=== PATIENT | male | born 1965 | race Caucasian/White ===

== ENCOUNTER 2023-11-24 11:45 | Observation (INO) | payer OTHER, SELFPAY ==
[2023-11-18 15:42] LABS: Absolute Lymphocyte Count 1.51 X10^3/uL (0.83-4.51); Absolute Neutrophil Count 7.4 X10^3/uL (2.0-7.7); Basophil# 0.06 X10^3/uL; Basophil% 0.6 % (0-1); Eosinophil# 0.39 X10^3/uL; Eosinophils% 3.8 % (0-5); Hematocrit 43.6 % (40-54); Hemoglobin 14.6 g/dL (13.0-16.5); Lymphocyte # 1.51 X10^3/ul (0.83-4.51); Lymphocyte % 14.6 % (19-41); Mean Corp Hgb Conc 33.5 g/dL (32-36); Mean Corpuscular Hgb 28.9 pg (27.0-32.0); Mean Corpuscular Volume 86.3 fL (80-94); Monocyte# 0.91 X10^3/uL; Monocyte% 8.8 % (0-10); NRBC Flagged by Analyzer 0 % (0-5); Neutrophil # 7.44 X10^3/uL (2.7-7.7); Neutrophil % 71.6 % (47-70); Platelet Count 212 K/mm3 (150-450); RBC Distribution Width CV 13.7 % (11.6-14.6); RBC Distribution Width SD 42.8 fl (35.1-43.9); Red Blood Count 5.05 M/mm3 (4.6-6.2); White Blood Count 10.4 K/mm3 (4.4-11.0)
[2023-11-18 16:29] LABS: Magnesium 2.3 mg/dL (1.6-2.6)
[2023-11-18 17:20] LABS: HIV - WCH Non-Reactive (Nonreactive); Hepatitis B Surface Antibody Non-Reactive; Hepatitis C Antibody Non-Reactive (Nonreactive)
[2023-11-20 06:10] LABS: Hepatitis A AB, Total Negative (Negative)
[2023-11-24] VITALS (17 sets, daily range): BP systolic 104–149; BP diastolic 67–85; PULSE 71–99; RESP 14–18; TEMP 36.3–36.6; O2SAT 94–100; BMI 30.4
[2023-11-24] MEDS: Lactated Ringers 1,000 ML 15 ML IV ×2 (05:45→12:32)
[2023-11-24] MEDS: Magnesium 1 GM over 15 mins IV (06:07)
[2023-11-24] MEDS: dexAMETHasone 10 MG/ML Vial 8 MG IV (06:08)
[2023-11-24] MEDS: Acetaminophen 500 MG Tablet 1000 MG PO ×3 (06:08→21:02)
[2023-11-24 06:19] LABS: Bedside Glucose 124 mg/dL (74-106)
--- NOTE | 2023-11-24 07:25 | PCM.HP.BLA ---
History and Physical MR#: [id number] Acct: [id number] Name: FRITZ LEVY Rep #: [id number] : 1965 Provider: Dr. Brandon Hernandez MD Age/Sex: 58/M Location: [facility] [place] Status: Signed Intake Vital Signs 11/11/2407:04 Height 6 ft Weight: 227 lb 6 oz BMI 30.8 Intake Visit Reasons: cervical spine Is patient in pain?: Yes Pain scale (1-10): 4 Allergies No Known Allergies Allergy (Verified 11/18/23 14:09) Medications allopurinol 100 mg tablet 100 mg PO DAILY 11/11/23 [History Confirmed 11/18/23] lisinopril 20 mg tablet 20 mg PO DAILY 11/11/23 [History Confirmed 11/18/23] loratadine 10 mg tablet (Claritin) 10 mg PO .PRN PRN allergic symptoms 11/11/23 [History Confirmed 11/18/23] multivitamin 1 tab PO DAILY 11/11/23 [History Confirmed 11/18/23] omeprazole 20 mg capsule,delayed release 20 mg PO DAILY 11/11/23 [History Confirmed 11/18/23] sertraline 50 mg tablet 50 mg PO DAILY 11/11/23 [History Confirmed 11/18/23] cholecalciferol (vitamin D3) 25 mcg (1,000 unit) capsule (Vitamin D3) 25 mcg PO DAILY 11/18/23 [History Confirmed 11/18/23] PFSH Medical History Alcohol use Back pain Chewing tobacco dependence Depression Gastric reflux History of hiatal hernia Hypertension Leg cramps Loss of hearing Wears glasses Wears hearing aid Surgical History Hx of colonoscopy Family History Father Hypertension Colon cancer Social History household members: spouse Smoking Status: Current every day smoker tobacco type: smokeless tobacco alcohol intake: current alcohol intake frequency: a few times a week HPI cervical spine Details: This documentation accurately reflects the service provided and the decisions made by me, Dr. Brandon Hernandez MD 11/18/23 1408. Part of today?s visit was documented by Davina Burt ATC, acting as scribe. FRITZ LEVY is a 58 year old M here today for pre-op for C5-6 disc replacement DOS 11/24/2023. Patient states that his cervical spine pain is about the same since the last time he was seen in here. Patient states he takes Tylenol/Advil as needed for pain. Fritz continues to have neck pain radiating down to the left upper extremity. Denies any changes in his symptoms since last week when I saw him. Following was his previous history. 11/11/23: FRITZ LEVY is a 58 year old M here today for Cervical spine. Patient states that he has had cervical neck problems since May 2023. Patient doesn't recall any injury to it. Patient has numbness and tingling going down just his left arm mainly goes to the elbow but today he has some tingling in his thumb. Patient has difficulty sleeping due to his symptoms. Patient feels like the pain starts below the shoulder blade. Patient has done some Physical Therapy. He completed 9 visit, and did that in [place]. He had weakness in his arms but with Physical therapy he got better. Patient states that if he reaches above his head irated it or even having his arm sit on the arm rest bothers it. Patients states it is consent. Patient does have a home traction unit. Patient states Tylenol and Ibuprofen don't do anything. He has been seeing a Chiropractor who referred him here. Patient hasn't tried any injections. Fritz continues to be in left-sided neck pain since May along with left upper extremity radiation going towards the dorsum of the left thumb. He is right-hand dominant. He denies any injuries around May. He had some axial neck pain even before May for which he utilized chiropractic treatment. After the new left-sided radicular symptoms started in May, he went to physical therapy which did improve right-sided axial neck pain but did not improve his left-sided axial neck pain and radicular symptoms. He has tried traction, e-stim, chiropractic adjustments over the last 4 to 5 months without significant help. He is nondiabetic. He has only difficulty with balance but does not seem to be significantly bothered by it. He feels that his left hand is numb and weak. He has some early dexterity issues that he has noticed while playing [employer]. He says that his radicular symptoms have actually worsened over the last 4 to 5 months. 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 He has severe difficulty with pain at night and has to find a comfortable position to improve his left arm radicular pain. Ortho Exam General General: Yes no acute distress Neurologic: Yes alert and Yes oriented x3 Spine SPINE TESTING CERVICAL THORACIC LUMBAR Musculoskeletal Strength 0=absent - 5=normal Details: Examination of the neck shows left paraspinal tenderness. Neurologic evaluation of upper extremity shows 5 x 5 power in all muscle groups, except 4+ strength in left wrist extension, reduced sensation over the dorsal aspect of the left thumb in the C6 dermatome. Silvana's is positive on the left. Romberg's is positive. Tandem gait shows imbalance. Bilateral knee reflexes are brisk. Left ankle jerk shows ill-sustained clonus. Coding Level of Care Code Off vis,est,level 3 Diagnoses HNP (herniated nucleus pulposus) with myelopathy, cervical M50.00 Time Spent (min) 30 Assessment and Plan Assessment and Plan (1) HNP (herniated nucleus pulposus) with myelopathy, cervical: Status: Acute Plan I again reviewed x-rays and MRI of the cervical spine. These show C5-6 reduced disc height without any dynamic instability on flexion-extension views. Patient is obtained MRI on October 29 which was uploaded to our system. This shows C5-6 left paracentral large disc herniation causing left hemicord compression as well as left foraminal stenosis. I explained to him that clinically he has developed cervical myelopathy with hyperreflexia in lower extremities, balance difficulties, positive Silvana's on the left, dexterity issues. He also has significant radiculopathy of at least 5 months duration which did not improve with multiple nonsurgical modalities such as physical therapy and chiropractic treatment. I explained to him the natural history of both cervical myelopathy as well as that of radiculopathy. Cervical myelopathy typically has a progressive pattern. His symptoms correlate with the left C5-6 disc herniation with hemicord compression. I recommend surgery for decompression. Surgical options were discussed in detail which include C5-6 ACDF versus C5-6 disc replacement. I recommended C5 status replacement as he has a single level disease without any instability or facet arthrosis. All risk benefits and alternatives were discussed with the patient. The risks include but are not limited to infection, bleeding, injury to nerves and vessels, hematoma formation, need for further surgery, hardware failure, subsidence, heterotopic ossification, dysphagia, dysphonia, adjacent segment degeneration, reoperation, repair of prosthesis, DVT, pulm embolism, pneumonia, atelectasis, cardiopulmonary event. Patient understands and agrees to proceed with surgery. Consent was signed.
[2023-11-24] MEDS: Cefazolin 2 GM in 0.9% Normal Saline (100mL Bag) 100 ML IV (09:15)
--- NOTE | 2023-11-24 09:24 | RAD_ITS ---
PROCEDURE: Intraoperative fluoroscopic services. DATE OF EXAMINATION: November 24, 2023. INDICATION: Male, 58 years old. C5-C6 cervical disc arthroplasty. FLUOROSCOPY TIME (if supplied): (42.2 seconds) minutes/seconds. 9.938 mCGy RAD/Cerv Spine 2 or 3 Views IMPRESSION: Intraoperative imaging provided for anterior C5-C6 disc arthroplasty. Electronically Signed: Kvng Casper MD at 14:26 EDT ,
--- NOTE | 2023-11-24 11:34 | PCM.OPRPT ---
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 Anesthesia: Gen. endotracheal Estimated blood loss: 20 mL Complications: None Instrumentation used: [employer] Mobi-C cervical disc replacement implants Indications: The patient is a pleasant 58-year-old gentleman who presented with symptoms of neck pain, left upper extremity radiation, progressive numbness and weakness and balance issues. MRI revealed C5-6 paracentral disc herniation with left hemicord and foraminal compression. In order to halt the progression of myelopathy, patient requested surgical intervention. All risks and benefits of the procedure were explained to the patient. The risks include but are not limited to infection, bleeding, injury to nerves and vessels, vertebral artery injury, spinal cord injury, paralysis, vocal cord paralysis, injury to esophagus, need for further procedures, adjacent segment degeneration, heterotopic ossification, implant loosening, implant failure, DVT, pulmonary embolism, cardiopulmonary event, etc. Procedure: The patient was identified in the preoperative suite using unique patient identifiers. Skin was marked consent was taken and all questions were answered. The patient was then brought back to the operative room and a timeout was performed. General endotracheal anesthesia was given. Intraoperative neuro monitoring leads were applied. The patient was carefully positioned supine on a regular OR table. A lateral x-ray with a C-arm was done to identify the level and to define the incision. The anterior neck was then prepped and draped in the usual fashion. A final timeout was then performed. A transverse skin incision was then taken to the left of midline 2 fingerbreadths above the clavicle. Subcutaneous tissue was then divided with Bovie. Platysma was identified and cut transversely with scissors. The fascial interval between the sternocleidomastoid and the larynx was developed. Omohyoid was identified and mobilized. Carotid sheath was laterally while the esophagus with the larynx was retracted medially to reach the prevertebral fascia. All prevertebral layers of fascia were bluntly dissected and a Houston pin was placed into one of the bodies. A lateral C-arm image was used to confirm the correct level. Once this was done longus coli muscle was elevated on both sides at and above and below C5-6 disc. Shadow line retractors were then placed with great care to protect the esophagus. A long handle knife was then used to perform annulotomy at C5-6. Disc fragments were removed with the pituitary. Houston pins were placed in C5 and C6 for disc distraction. AP view confirmed midline placement of Houston pins. Curettes were utilized to remove cartilage from the endplates. Discectomy was performed laterally up to the uncovertebral joints. Adequate decompression was performed, PLL was thinned out and resected. Extruded disc fragments were removed piecemeal from the spinal canal. Nerve hook was utilized to remove all extruded disc fragments. The extruded disc fragments correlated with the size of the disc herniation seen on MRI. Foramina were decompressed without taking down the uncovertebral processes. Once the disc space was prepared, trials of various sizes were utilized. Thorough irrigation was given. Mobi-C anterior cervical disc replacement implant of size 17 x 17 mm with 5 mm height was then placed under fluoroscopic guidance. Adequate positioning was noticed on AP and lateral views. Thorough irrigation was again given. Hemostasis was achieved with FloSeal and cautery. Closure was done with 3-0 Vicryl for the platysma and subcutaneous tissue layers and 4-0 Monocryl for the skin. Closure was done around Sharon drain. Steri-Strips were applied and dressing was done with 4 x 4 gauze and Tegaderm. A cervical collar was then applied. The patient was then woken up from anesthesia extubated and taken to PACU in stable condition. Intraoperative neuro monitoring was performed throughout this procedure. Motor evoked potentials were run periodically. Sensory's and motor potentials of the left upper and lower extremities were temporarily reduced and this was attributed to intraoperative hypotension. On correction of the hypertension, all potentials returned to baseline and remained there until the end of the procedure. I was present for the entire surgery and performed the surgery myself. Admit VTE Documentation VTE Mechan Device Prophylaxis: SCD's Procedures Musculoskeletal [id number]: Other Procedure See Report
[2023-11-24] MEDS: dexAMETHasone 4 MG/ML Vial IV ×2 (12:34→18:07)
--- NOTE | 2023-11-24 13:57 | NURSING ---
neuro check negative
[2023-11-24] MEDS: Lactated Ringers 1,000 ML 100 ML IV ×2 (16:42→18:07)
[2023-11-24] MEDS: Cefazolin 1 GM/50 ML BAG IV (17:16)
--- NOTE | 2023-11-24 21:01 | NURSING ---
dr schwab notified of consult
--- OUTSIDE RECORDS SUMMARY | 2023-11-24 21:29 | XMS RPT_ITS | CCD ---
Author Name Unknown Address [address] [facility] [address] [place] [address] Organization [facility] Care Team Providers Care Primer Charger Name Role Phone Tunde Avalos Admitting Unavailable Avalos, Tunde Attending Unavailable Avalos, Christophremedios Primary Care Unavailable Moomaw, Emmett Admitting Unavailable Moomaw, Emmett Attending Unavailable Avalos, Christophremedios Primary Care Unavailable Avalos, Tunde Attending Unavailable Avalos, Christophremedios Primary Care Unavailable Avalos, Tunde Attending Unavailable Avalos, Christophremedios Primary Care Unavailable Avalos, Christamberer Admitting Unavailable Avalos, Christabril Attending Unavailable Avalos, Christopher Primary Care Unavailable Avalos, Christopher Admitting Unavailable Avalos, Christopher Attending Unavailable Avalos, Christopher Primary Care Unavailable Avalos, Christopher Attending Unavailable Avalos, Christopher Primary Care Unavailable Avalos Tunde ROBERTS Primary Care Provider TUNDE AVALOS Primary Care Unavaila RICARDO Baltazar Attending Un available Tunde Avalos Unavailable [phone] Unavailable Unavailable RAMIRO VALENTINE Referring Unavailable CHRISTIANO VILLANUEVA Attending Unavailable PROVIDER, UNKNOWN Admitting Unavailable Tunde Avalos Unavailable Dave Carrasco Unavailable Unavailable Hong Chau Unavailable TUNDE AVALOS Attending Unavaila ble AVALOS, TUNDE CALLOWAY Referring Unavaila ble AVALOS, TUNDE CALLOWAY Primary Care Unavaila ble AVALOS, TUNDE CALLOWAY Attending Unavaila ble AVALOS, TUNDE CALLOWAY Referring Unavaila ble AVALOS, TUNDE CALLOWAY Primary Care Unavaila ble AVALOS, TUNDE CALLOWAY Attending Unavaila ble AVALOS, TUNDE CALLOWAY Referring Unavaila ble AVALOS, TUNDE CALLOWAY Primary Care Unavaila ble Avalos, Dr. Tunde Calloway Primary Care Unav ailable Kamenik, Ms. Dave Cohen Attending Unavai lable Avalos, Dr. Tunde Calloway Primary Care Unav ailable Avalos, Dr. Tunde Calloway Attending Unav ailable Roscoe, Dr. Hong Vaca Attending Unavail able Avalos, Dr. Tunde Calloway Primary Care Unav ailable Avalos, Dr. Tunde Calloway Primary Care Unav ailable Avalos, Dr. Tunde Calloway Referring Unav ailable Sacha Stern Admitting Unavailable ThomSacha galvez Attending Unavailable Avalos Tunde ROBERTS Primary Care Provider [phone] Tunde Avalos MD Unavailable Tunde Avalos MD Unavailable [phone] Tunde Avalos MD Primary Care Provider [phone] JOIE TAVARES Attending Unavailable AVALOS, CHRISTOPHER D Referring Unavailable AVALOS, CHRISTOPHER D Primary Care Unavailable AVALOS, CHRISTOPHER D Referring Unavailable AVALOS, CHRISTOPHER D Primary Care Unavailable AVALOS, CHRISTOPHER D Referring Unavailable AVALOS, CHRISTOPHER D Primary Care Unavailable AVALOS, CHRISTOPHER D Referring Unavailable AVALOS, CHRISTOPHER D Primary Care Unavailable AVALOS, CHRISTOPHER D Referring Unavailable AVALOS, CHRISTOPHER D Primary Care Unavailable AVALOS, CHRISTOPHER D Referring Unavailable AVALOS, CHRISTOPHER D Primary Care Unavailable AVALOS, CHRISTOPHER D Referring Unavailable AVALOS, CHRISTOPHER D Primary Care Unavailable AVALOS, CHRISTOPHER D Referring Unavailable AVALOS, CHRISTOPHER D Primary Care Unavailable AVALOS, CHRISTOPHER D Referring Unavailable AVALOS, CHRISTOPHER D Primary Care Unavailable JOIE TAVARES Attending Unavailable AVALOS, CHRISTOPHER D Referring Unavailable AVALOS, CHRISTOPHER D Primary Care Unavailable AVALOS, CHRISTOPHER D Primary Care Unavailable DAVE CARRASCO Attending Unavailable PAMELA ESPINOZA Referring Unavailable AVALOS, CHRISTOPHER Amber Primary Care Unavailable AVALOS, CHRISTOPHER D Referring Unavailable AVALOS, CHRISTOPHER D Primary Care Unavailable AVALOS, CHERIEOPHER D Attending Unavailable AVALOS, CHRISTOPHER D Primary Care Unavailable AVALOS, CHERIEOPHER D Attending Unavailable AVALOS, CHERIEOPHER D Primary Care Unavailable AVALOS, CHERIEOPHER D Attending Unavailable AVALOS, CHERIEOPHER D Referring Unavailable AVALOS, CHRISTOPHER D Primary Care Unavailable AVALOS, CHRISTOPHER D Attending Unavailable AVALOS, CHRISTOPHER D Primary Care Unavailable AVALOS, CHRISTOPHER D Attending Unavailable AVALOS, CHRISTOPHER D Primary Care Unavailable AVALOS, CHRISTOPHER D Primary Care Unavailable AVALOS, CHRISTOPHER D Primary Care Unavailable Allergies Allergy Classification Reported Allergen(s) Allergy Type Date of Onset Reaction(s) Facility (1 source) Erythromycin; Translations: [erythromycin] Drug Allergy [facility] Repository Medications Current Medications Medication Drug Class(es) Dates Sig (Normalized) Sig (Original) allopurinol 100 mg oral tablet (19 sources) Xanthine Oxidase Inhibitor Start: 11-12-2021 End: 11-12-2024 take 1 tablet by mouth once daily allopurinol (Zyloprim) 100 mg tablet Indications: Gout, unspecified cause, unspecified chronicity, unspecified site Take 1 tablet (100 mg) by mouth once daily. 90 tablet 3 11/13/2023 11/12/2024 Active amoxicillin 875 mg / clavulanate 125 mg oral tablet (2 sources) Penicillin-class Antibacterial Start: 06-26-2022 End: 07-05-2022 take 1 tablet by mouth twice daily at mealtime amoxicillin-clavu lanate 875 mg-125 mg oral tablet ; 875 milligram(s) orally 2 times a day Quantity: 20 Refills: 0 Ordered: 26-Jun-2022 Dave Carrasco Start: 26-Jun-2022 End: 05-Jul-2022 Generic Substitution Allowed Comments: Finish all this medication unless otherwise directed by prescriber.Take with food or milk. Completed/Discontinued Medications Medication Drug Class(es) Dates Sig (Normalized) Sig (Original) ALPRAZolam 0.25 mg oral tablet (3 sources) Benzodiazepine Start: 08-16-2022 take 1 tablet by mouth three times daily as needed ALPRAZolam 0.25 MG Oral Tablet TAKE 1 TABLET 3 TIMES DAILY NEEDED. Quantity: 21 Refills: 0 Ordered: 16-Aug-2022 Tunde Avalos MD : 16-Aug-2022 Active hydroCHLOROthiazide 12.5 mg / lisinopril 10 mg oral tablet (2 sources) Thiazide Diuretic, Angiotensin Converting Enzyme Inhibitor Start: 12-24-2018 take 1 tablet by mouth once daily Lisinopril-hydr oCHLOROthiazide 10-12.5 MG Oral Tablet TAKE 1 TABLET DAILY. Quantity: 90 Refills: 3 Ordered: 05-Jan-2021 Tunde Avalos MD Start : 24-Dec-2018 Active Problems Active Problems Problem Classification Problem Date Documented Date Episodic/Chronic Allergic reactions (3 sources) Urticaria; Translations: [Urticaria, unspecified] Onset: 10-22-2023 10-22-2023 Episodic Disorders of lipid metabolism (20 sources) Hypertriglyceridemia; Translations: [Pure hyperglyceridemia] Onset: 11-25-2022 02-17-2023 Chronic Esophageal disorders (20 sources) Gastroesophageal reflux disease; Translations: [Esophageal reflux] Onset: 06-29-2022 02-17-2023 Chronic Essential hypertension (20 sources) Hypertensive disorder; Translations: [Unspecified essential hypertension] Onset: 06-29-2022 02-17-2023 Chronic Gout and other crystal arthropathies (20 sources) Gouty arthritis of toe; Translations: [Gout, unspecified] Onset: 11-25-2022 Chronic Headache; including migraine (2 sources) Headache; including migraine; Translations: [Headache, unspecified] Onset: 06-26-2022 Immunizations and screening for infectious disease (20 sources) Patient encounter status; Translations: [Other specified vaccination] Onset: 11-16-2018 02-17-2023 Episodic Mood disorders (20 sources) Depressive disorder; Translations: [Depressive disorder, not elsewhere classified] Onset: 11-25-2022 02-17-2023 Chronic Other and unspecified benign neoplasm (2 sources) Personal history of colonic polyps; Translations: [Personal history of colonic polyps] Onset: 10-08-2022 Episodic Other bone disease and musculoskeletal deformities (3 sources) Segmental and somatic dysfunction; Translations: [Segmental and somatic dysfunction of cervical region] Onset: 10-29-2023 10-29-2023 Episodic Other bone disease and musculoskeletal deformities (1 source) Segmental and somatic dysfunction of cervical region; Translations: [Segmental and somatic dysfunction of cervical region] Onset: 10-29-2023 Episodic Other hereditary and degenerative nervous system conditions (15 sources) Essential tremor; Translations: [Essential and other specified forms of tremor] Onset: 11-25-2022 11-25-2022 Chronic Other hereditary and degenerative nervous system conditions (1 source) Essential tremor; Translations: [Essential tremor] Onset: 11-25-2022 Chronic Other inflammatory condition of skin (20 sources) Rosacea; Translations: [Rosacea] Onset: 11-25-2022 11-25-2022 Chronic Other inflammatory condition of skin (2 sources) Rosacea, unspecified; Translations: [Rosacea, unspecified] Onset: 11-25-2022 Chronic Other male genital disorders (20 sources) Secondary erectile dysfunction; Translations: [Impotence of organic origin] Onset: 11-25-2022 02-17-2023 Chronic Other male genital disorders (1 source) Other male erectile dysfunction; Translations: [Impotence of organic origin] Onset: 11-25-2022 11-13-2023 Chronic Other male genital disorders (2 sources) Male erectile dysfunction, unspecified; Translations: [Male erectile dysfunction, unspecified] Onset: 11-25-2022 Chronic Other nervous system disorders (4 sources) Other chronic pain; Translations: [Other chronic pain] Onset: 08-01-2023 Chronic Other non-traumatic joint disorders (1 source) Shoulder pain; Translations: [Pain in right shoulder] 02-17-2023 Episodic Other non-traumatic joint disorders (4 sources) Bilateral chronic pain of upper limbs; Translations: [Pain in right shoulder] 08-01-2023 Episodic Other nutritional; endocrine; and metabolic disorders (20 sources) Obesity; Translations: [Obesity, unspecified] Onset: 11-25-2022 11-25-2022 Chronic Residual codes; unclassified (2 sources) Family history of malignant neoplasm of digestive organs; Translations: [Family history of malignant neoplasm of digestive organs] Onset: 10-08-2022 Episodic Residual codes; unclassified (2 sources) Family history of colonic polyps; Translations: [Family history of colonic polyps] Onset: 10-08-2022 Episodic Spondylosis; intervertebral disc disorders; other back problems (4 sources) Cervical spondylosis without myelopathy; Translations: [Spondylosis without myelopathy or radiculopathy, cervical region] Onset: 10-29-2023 10-29-2023 Chronic Unclassified (2 sources) CONGESTION SINUS PAIN 06-26-2022 Past or Other Problems Problem Classification Problem Date Documented Da te Episodic/Chronic Fever of unknown origin (1 source) Fever, unspecified; Translations: [Fever, unspecified] Onset: 06-29-2022 Episodic Malaise and fatigue (1 source) Other fatigue; Translations: [Other fatigue] Onset: 06-29-2022 Episodic Other aftercare (1 source) Other termite inspector (current) drug therapy; Translations: [Other alf (current) drug therapy] Onset: 06-29-2022 Episodic Other connective tissue disease (20 sources) Plantar fasciitis; Translations: [Plantar fascial fibromatosis] Onset: 11-25-2022 Resolved: 02-17-2023 02-17-2023 Episodic Other non-traumatic joint disorders (8 sources) Pain in right shoulder; Translations: [Pain in joint, shoulder region] Onset: 08-01-2023 08-20-2023 Episodic Other non-traumatic joint disorders (8 sources) Pain in left shoulder; Translations: [Pain in joint, shoulder region] Onset: 08-01-2023 09-25-2023 Episodic Other screening for suspected conditions (not mental disorders or infectious disease) (6 sources) Encounter for screening for malignant neoplasm of colon; Translations: [Encounter for screening for malignant neoplasm of prostate] Onset: 10-08-2022 Episodic Other upper respiratory infections (1 source) Acute sinusitis, unspecified; Translations: [Acute sinusitis, unspecified] Onset: 06-26-2022 Episodic Pneumonia (except that caused by tuberculosis or sexually transmitted disease) (20 sources) Pneumonia; Translations: [Pneumonia, organism unspecified] Onset: 08-20-2022 Resolved: 02-17-2023 06-29-2022 Episodic Residual codes; unclassified (2 sources) Pain, unspecified; Translations: [Pain, unspecified] Onset: 06-29-2022 Episodic Spondylosis; intervertebral disc disorders; other back problems (9 sources) Neck pain; Translations: [Cervicalgia] Onset: 08-01-2023 08-01-2023 Episodic Unclassified (4 sources) Onset: 08-20-2023 08-20-2023 Results Test Name Value Interpretation Reference Range Facil ity Vital Signs Date Time Vital Sign Value Performing Clinician Faci erni 11-13-2023 10:22-0500 Body height 182.9 cm Tunde Avalos MD Work Phone: [facility] 11-13-2023 10:22-0500 Body mass index (BMI) [Ratio] 30.75 kg/m2 Tunde Avalos MD Work Phone: [facility] 11-13-2023 10:22-0500 Body weight 102.83 kg Tunde Avalos MD Work Phone: [facility] 11-13-2023 10:22-0500 Diastolic blood pressure 80 mm[Hg] Tunde Avalos MD Work Phone: [facility] 11-13-2023 10:22-0500 Heart rate 94 /min Tunde Avalos MD Work Phone: [facility] 11-13-2023 10:22-0500 SaO2% (BldA) [Mass fraction] 97 % Tunde Avalos MD Work Phone: [facility] 11-13-2023 10:22-0500 Systolic blood pressure 128 mm[Hg] Tunde Avalos MD Work Phone: [facility] 10-22-2023 09:36-0500 Body height 182.9 cm Dave Carrasco REHABILITATION CONSTRUCTION SPECIALIST-SEISMIC PROSPECTING OBSERVER Work Phone: [facility] 10-22-2023 09:36-0500 Body mass index (BMI) [Ratio] 31.19 kg/m2 Dave Carrasco REHABILITATION CONSTRUCTION SPECIALIST-SEISMIC PROSPECTING OBSERVER Work Phone: [facility] 10-22-2023 09:36-0500 Body temperature 97.39 [degF] Dave Carrasco REHABILITATION CONSTRUCTION SPECIALIST-SEISMIC PROSPECTING OBSERVER Work Phone: [facility] 10-22-2023 09:36-0500 Body weight 104.33 kg Dave Carrasco REHABILITATION CONSTRUCTION SPECIALIST-SEISMIC PROSPECTING OBSERVER Work Phone: [facility] 10-22-2023 09:36-0500 Diastolic blood pressure 79 mm[Hg] Dave Carrasco REHABILITATION CONSTRUCTION SPECIALIST-SEISMIC PROSPECTING OBSERVER Work Phone: [facility] 10-22-2023 09:36-0500 Heart rate 120 /min Dave Carrasco REHABILITATION CONSTRUCTION SPECIALIST-SEISMIC PROSPECTING OBSERVER Work Phone: [facility] 10-22-2023 09:36-0500 Respiratory rate 14 /min aDve Carrasco REHABILITATION CONSTRUCTION SPECIALIST-SEISMIC PROSPECTING OBSERVER Work Phone: [facility] 10-22-2023 09:36-0500 SaO2% (BldA) [Mass fraction] 97 % Dave Carrasco REHABILITATION CONSTRUCTION SPECIALIST-SEISMIC PROSPECTING OBSERVER Work Phone: [facility] 10-22-2023 09:36-0500 Systolic blood pressure 129 mm[Hg] Dave Carrasco REHABILITATION CONSTRUCTION SPECIALIST-SEISMIC PROSPECTING OBSERVER Work Phone: [facility] 08-01-2023 15:15-0500 Body height 182.9 cm Tunde Avalos MD Work Phone: [facility] 08-01-2023 15:15-0500 Body mass index (BMI) [Ratio] 32.33 kg/m2 Tunde Avalos MD Work Phone: [facility] 08-01-2023 15:15-0500 Body weight 108.14 kg Tunde Avalos MD Work Phone: [facility] 08-01-2023 15:15-0500 Diastolic blood pressure 90 mm[Hg] Tunde Avalos MD Work Phone: [facility] 08-01-2023 15:15-0500 Heart rate 88 /min Tunde Avalos MD Work Phone: [facility] 08-01-2023 15:15-0500 SaO2% (BldA) [Mass fraction] 98 % Tunde Avalos MD Work Phone: [facility] 08-01-2023 15:15-0500 Systolic blood pressure 120 mm[Hg] Tunde Avalos MD Work Phone: [facility] 02-17-2023 08:06-0400 Body height 182.9 cm Tunde Avalos MD Work Phone: [facility] 02-17-2023 08:06-0400 Body mass index (BMI) [Ratio] 31.33 kg/m2 Tunde Avalos MD Work Phone: [facility] 02-17-2023 08:06-0400 Body weight 104.78 kg Tunde Avalos MD Work Phone: [facility] 02-17-2023 08:06-0400 Diastolic blood pressure 90 mm[Hg] Tunde Avalos MD Work Phone: [facility] 02-17-2023 08:06-0400 Heart rate 81 /min Tunde Avalos MD Work Phone: [facility] 02-17-2023 08:06-0400 SaO2% (BldA) [Mass fraction] 98 % Tunde Avalos MD Work Phone: [facility] 02-17-2023 08:06-0400 Systolic blood pressure 110 mm[Hg] Tunde Avalos MD Work Phone: [facility] 08-16-2022 14:07-0500 Body height 182.88 cm Tunde Avalos Work Phone: [facility] Work Phone: 08-16-2022 14:07-0500 Body mass index (BMI) [Ratio] 30.68 kg/m2 Tunde Avalos Work Phone: -[facility] Work Phone: 08-16-2022 14:07-0500 Body surface area Derived from formula 2.24 m2 Tunde Avalos Work Phone: [facility] Work Phone: 08-16-2022 14:07-0500 Body weight 102.6 kg Tunde Gaged Work Phone: [facility] Work Phone: 08-16-2022 14:07-0500 Diastolic blood pressure 80 mm[Hg] Christamberer D Avalos Work Phone: [facility] Work Phone: 08-16-2022 14:07-0500 Heart rate 78 /min Christopher D Avalos Work Phone: [facility] Work Phone: 08-16-2022 14:07-0500 SaO2% (BldA) [Mass fraction] 98 % Chevyer Amber Gaged Work Phone: [facility] Work Phone: 08-16-2022 14:07-0500 Systolic blood pressure 120 mm[Hg] Christamberer D Avalos Work Phone: [facility] Work Phone: 06-29-2022 14:00-0400 Diastolic blood pressure 101 mm[Hg] Christopher Avalos Other Phone: [facility] 06-29-2022 14:00-0400 Heart rate 86 /min Christopher Avalos Other Phone: [facility] 06-29-2022 14:00-0400 Respiratory rate 16 /min Christopher Avalos Other Phone: [facility] 06-29-2022 14:00-0400 SaO2% (BldA) [Mass fraction] 98 % Christopher Avalos Other Phone: [facility] 06-29-2022 14:00-0400 Systolic blood pressure 121 mm[Hg] Christopher Avalos Other Phone: [facility] 06-26-2022 18:48-0400 Body height 183 cm Christopher Avalos Other Phone: [facility] 06-26-2022 18:48-0400 Body temperature 97.7 [degF] Tunde Gaged Other Phone: [facility] 06-26-2022 18:48-0400 Diastolic blood pressure 88 mm[Hg] Tunde Gaged Other Phone: [facility] 06-26-2022 18:48-0400 Heart rate 111 /min Tunde Avalos Other Phone: [facility] 06-26-2022 18:48-0400 Respiratory rate 14 /min Tunde Avalos Other Phone: [facility] 06-26-2022 18:48-0400 SaO2% (BldA) [Mass fraction] 97 % Tunde Avalos Other Phone: [facility] 06-26-2022 18:48-0400 Systolic blood pressure 144 mm[Hg] Tunde Avalos Other Phone: [facility] 05-14-2021 08:04-0400 Body height 182.88 cm Tunde Avalos Work Phone: -[facility] Work Phone: 05-14-2021 08:04-0400 Body mass index (BMI) [Ratio] 30.41 kg/m2 Tunde Avalos Work Phone: -[facility] Work Phone: 05-14-2021 08:04-0400 Body surface area Derived from formula 2.24 m2 Tunde Avalos Work Phone: -[facility] Work Phone: 05-14-2021 08:04-0400 Body temperature 97.3 [degF] Tunde Avalos Work Phone: -[facility] Work Phone: 05-14-2021 08:04-0400 Body weight 101.72 kg Tunde Avalos Work Phone: [facility] Work Phone: 05-14-2021 08:04-0400 Diastolic blood pressure 84 mm[Hg] Tunde Avalos Work Phone: [facility] Work Phone: 05-14-2021 08:04-0400 Heart rate 87 /min Tunde Avalos Work Phone: [facility] Work Phone: 05-14-2021 08:04-0400 SaO2% (BldA) [Mass fraction] 98 % Tunde Avalos Work Phone: [facility] Work Phone: 05-14-2021 08:04-0400 Systolic blood pressure 116 mm[Hg] Tunde Avalos Work Phone: [facility] Work Phone: 01-28-2021 08:59-0400 Body height 182.9 cm Ricardo Monterroso MD Work Phone: [facility] 01-28-2021 08:59-0400 Body mass index (BMI) [Ratio] 28.48 kg/m2 Ricardo Monterroso MD Work Phone: [facility] 01-28-2021 08:59-0400 Body temperature 96.3 [degF] Ricardo Monterroso MD Work Phone: [facility] 01-28-2021 08:59-0400 Body weight 95.25 kg Ricardo Monterroso MD Work Phone: [facility] 01-28-2021 08:59-0400 Diastolic blood pressure 89 mm[Hg] Ricardo Monterroso MD Work Phone: [facility] 01-28-2021 08:59-0400 Heart rate 75 /min Ricardo Monterroso MD Work Phone: [facility] 01-28-2021 08:59-0400 Respiratory rate 18 /min Ricardo Monterroso MD Work Phone: [facility] 01-28-2021 08:59-0400 SaO2% (BldA) [Mass fraction] 100 % Ricardo Monterroso MD Work Phone: [facility] 01-28-2021 08:59-0400 Systolic blood pressure 142 mm[Hg] Ricardo Monterroso MD Work Phone: [facility] Encounters Encounter Date Encounter Type Care Provider Facility Start: 11-13-2023 End: 11-14-2023 ambulatory IVANHOE Amber [facility] Amb[facility] Start: 11-13-2023 End: 11-14-2023 Encounter for other preprocedural examination [facility] Ambulatory Start: 11-13-2023 End: 11-13-2023 Office outpatient visit 15 minutes Tunde Avalos MD Work Phone: [facility] Procedures Date Procedure Procedure Detail Performing Clinician Start: 11-13-2023 CBC W Auto Different ial panel - Blood TUNDE AVALOS Start: 11-13-2023 Comprehensive metabo lic 2000 panel - Serum or Plasma TUNDE AAVLOS Start: 11-13-2023 ECG 12-LEAD OSMANI AVALOS Start: 11-13-2023 Ecg routine ecg w/le ast 12 lds w/i&r Tunde Avalos MD Work Phone: Start: 10-29-2023 MR CERVICAL SPINE WO IV CONTRAST JOIE TAVARES Start: 10-29-2023 Mri spinal canal cer vical w/o contrast matrl Pamela Espinoza DC Work Phone: Start: 09-25-2023 FOLLOW UP IN PHYSICA L THERAPY JOIE TAVARES Start: 09-23-2023 FOLLOW UP IN PHYSICA L THERAPY JOIE TAVARES Start: 09-18-2023 FOLLOW UP IN PHYSICA L THERAPY JOIE TAVARES Start: 09-16-2023 FOLLOW UP IN PHYSICA L THERAPY JOIE TAVARES Start: 09-11-2023 FOLLOW UP IN PHYSICA L THERAPY JOIE TAVARES Start: 09-09-2023 FOLLOW UP IN PHYSICA L THERAPY JOIE TAVARES Start: 09-04-2023 FOLLOW UP IN PHYSICA L THERAPY JOIE TAVARES Start: 09-02-2023 FOLLOW UP IN PHYSICA L THERAPY JOIE TAVARES Start: 08-29-2023 FOLLOW UP IN PHYSICA L THERAPY JOIE TAVARES Start: 08-20-2023 AMB REFERRAL TO PHYS ICAL THERAPY JOIE TAVARES Start: 08-19-2023 FOLLOW UP IN FAMILY MEDICINE TUNDE AVALOS Start: 08-08-2023 CHOLESTEROL, LDL DIRECT TUNDE AVALOS Start: 08-08-2023 Comprehensive metabo lic 2000 panel - Serum or Plasma TUNDE AVALOS Start: 08-08-2023 PROSTATE SPECIFIC AN TIGEN, SCREEN TUNDE AVALOS Start: 08-08-2023 Lipid 1996 panel - S barbara or Plasma Dave ARAYA Work Phone: Start: 08-01-2023 XR SHOULDER RIGHT 2+ VIEWS JOIE TAVARES Start: 08-01-2023 XR CERVICAL SPINE CO MPLETE 4-5 VIEWS JOIE TAVARES Start: 08-01-2023 XR SHOULDER LEFT 2+ VIEWS JOIE TAVARES Start: 08-01-2023 End: 08-01-2023 Radex spine cervical 4 or 5 views Tunde Avalos MD Work Phone: Start: 01-31-2023 Lipid 1996 panel - S barbara or Plasma Tunde Avalos MD Work Phone: Start: 10-08-2022 End: 10-08-2022 Colonoscopy Tunde Avalos Work Phone: Start: 10-08-2022 Colonoscopy Osmani Avalos Work Phone: Plan of Treatment Date Care Activity Detail Author Start: 10-08-2032 Screening for malignant neoplasm of colon [facility] Start: 10-05-2030 DTaP/Tdap/Td Vaccines (2 - Td or Tdap) DTaP/Tdap/Td Vaccines (2 - Td or Tdap) [facility] Start: 08-08-2028 Lipid panel Lipid Panel [facility] Start: 02-01-2028 Lipid panel Lipid Panel [facility] Start: 11-25-2027 Screening for malignant neoplasm of colon [facility] Start: 02-16-2024 End: 02-16-2024 Patient encounter procedure 02/16/2024 2:00 PM EDT Office Visit [facility] [address] [place] [id number] Tunde Avalos MD [address] [place] [address] [facility] Start: 11-13-2023 End: 11-12-2024 CBC W Auto Differential panel - Blood [facility] Service Area Work Phone: Immunizations Immunization Date Immunization Notes Care Provider Fa cility 12-29-2020 Moderna COVID-19 Vaccine 100 MCG/0.5ML Intramuscular Suspension Tunde Avalos Work Phone: [facility] Payers Date Payer Category Payer Unknown [employer] PPO [id number] 2021-Present [id number] 2020 Unknown [id number] 2017 Unknown 1965 Unknown [id number] 2.16.840.1.437482.3.579.2.717 1965 Unknown [id number] 2.16.840.1.438591.3.579.2.902 1965 Unknown [id number] 2.16.840.1.993729.3.579.2.732 1965 Unknown [id number] 2.16.840.1.905282.3.579.2.356 1965 Unknown [id number] 2.16.840.1.267131.3.579.2.356 1965 Unknown [id number] 2.16.840.1.151507.3.579.2.356 1965 Unknown [id number] 2.16.840.1.758234.3.579.2.1068 1965 Unknown [id number] 2.16.840.1.302425.3.579.2.1068 1965 Unknown [id number] 2.16.840.1.522441.3.579.2.1068 1963 Unknown [id number] 2.16.840.1.605143.3.579.2.1068 1963 Unknown [id number] 2.16.840.1.482816.3.579.2.1242 1963 Unknown [id number] 2.16.840.1.687742.3.579.2.1242 1963 Unknown [id number] 2.16.840.1.415142.3.579.2.1242 1963 Unknown [id number] 2.16.840.1.513492.3.579.2.1242 1963 Unknown [id number] 2.16.840.1.172269.3.579.2.1242 1963 Unknown [id number] 2.16.840.1.597189.3.579.2.1242 1965 Unknown [id number] 2.16.840.1.857952.3.579.2.1242 1963 Unknown [id number] 2.16.840.1.801404.3.579.2.1242 1963 Unknown [id number] 2.16.840.1.607953.3.579.2.1242 1963 Unknown [id number] 2.16.840.1.981943.3.579.2.1242 1963 Unknown [id number] 2.16.840.1.959053.3.579.2.1242 1963 Unknown [id number] 2.16.840.1.065890.3.579.2.1242 1963 Unknown [id number] 2.16.840.1.436518.3.579.2.1242 1963 Unknown [id number] 2.16.840.1.385272.3.579.2.1242 1963 Unknown [id number] 2.16.840.1.894220.3.579.2.1242 1963 Unknown [id number] 2.16.840.1.423607.3.579.2.1243 1963 Unknown [id number] 2.16.840.1.706469.3.579.2.1243 1963 Unknown [id number] 2.16.840.1.735902.3.579.2.1243 1963 Unknown [id number] 2.16.840.1.527433.3.579.2.1243 1963 Unknown [id number] 2.16.840.1.591671.3.579.2.1243 1963 Unknown [id number] 2.16.840.1.074829.3.579.2.1244 1965 Unknown [id number] 2.16840.1.760208.3.579.2.1245 Social History Date Type Detail Facility Start: 01-28-2021 End: 11-13-2023 Tobacco smoking status WYIS Never smoker [facility] Start: 01-28-2021 Tobacco use and exposure Never used [facility] Start: 01-28-2021 End: 11-13-2023 Alcohol intake Current drinker of alcohol (finding) [facility] Start: 01-28-2021 Alcohol Comment [facility] Start: 1965 Sex Assigned At Not on file [facility] Start: 02-07-2023 End: 11-13-2023 Exposure to SARS-CoV-2 (event) Not sure [facility] Start: 02-17-2023 End: 08-20-2023 Chews tobacco Chews tobacco -[facility] Work Phone: Tobacco smoking consumption unknown [facility] Start: 12-06-2022 End: 11-13-2023 Tobacco use and exposure User of smokeless tobacco [facility] Work Phone: History of tobacco use Snuff User [facility] Work Phone: Start: 02-17-2023 End: 08-20-2023 Tobacco use panel [facility] Work Phone: Start: 12-06-2022 Alcohol Comment rarely [facility] Work Phone: Start: 08-19-2023 Alcohol Comment Socially [facility] Work Phone: History of tobacco use Passive smoker [facility] Work Phone: NEGATED: Highlighted row Denies Consumes alcohol occasionally Denies Consumes alcohol occasionally -[facility] Work Phone: Clinical Notes 01-28-2021 to 11-13-2023 Assessment & Plan Note - Tunde Avalos MD - 11/13/2023 12:35 PM ESTAssessment & Plan Note - Tunde Avalos MD - 11/13/2023 12:35 PM ESTPatient Instructions Note Date & Type Note Facility 11-13-2023 Evaluation + Plan note Associated Problem(s): Hypertension Blood pressure under good control, check electrolyte and renal functions today. [facility] Work Phone: 11-13-2023 Miscellaneous Notes Associated Problem(s): Hypertension Blood pressure under good control, check electrolyte and renal functions today. documented in this encounter [facility] Work Phone: 11-13-2023 History of Present illness Narrative Subjective Patient ID: Fritz Levy is a 58 y.o. male who presents for Pre-op Exam. HPI To have neck surgery 11/[address] [place] [address] Hernandez at C5-6 No headache, chest pain, shortness of breath, dizziness, lightheadedness, or edema Able to exercise 4 mets, uses smokeless tobacco 1 can a day No prior surgery in the past, no history of RAJESH No GI or skin issues Review of Systems Constitutional: Negative for activity change, appetite change, fatigue and unexpected weight change. HENT: Negative for ear pain, nosebleeds, rhinorrhea, sneezing and trouble swallowing. Respiratory: Negative for cough, shortness of breath and wheezing. Cardiovascular: Negative for chest pain, palpitations and leg swelling. Gastrointestinal: Negative for abdominal distention, abdominal pain, constipation, diarrhea, nausea and vomiting. Genitourinary: Negative for difficulty urinating. Musculoskeletal: Positive for gait problem. Negative for arthralgias. Skin: Negative for rash. Neurological: Positive for headaches. Negative for dizziness, light-headedness and numbness. Hematological: Negative for adenopathy. Psychiatric/Behavioral: Negative for behavioral problems. All other systems reviewed and are negative. Objective BP 128/80 Pulse 94 Ht 1.829 m (6') Wt 103 kg (226 lb 11.2 oz) SpO2 97% BMI 30.75 kg/m Physical Exam Vitals and nursing note reviewed. Constitutional: General: He is not in acute distress. Appearance: Normal appearance. He is not toxic-appearing. HENT: Head: Normocephalic and atraumatic. Right Ear: Tympanic membrane, ear canal and external ear normal. Left Ear: Tympanic membrane, ear canal and external ear normal. Nose: Nose normal. Mouth/Throat: Mouth: Mucous membranes are moist. Pharynx: Oropharynx is clear. Eyes: Extraocular Movements: Extraocular movements intact. Conjunctiva/sclera: Conjunctivae normal. Pupils: Pupils are equal, round, and reactive to light. Cardiovascular: Rate and Rhythm: Normal rate and regular rhythm. Pulses: Normal pulses. Heart sounds: Normal heart sounds. Pulmonary: Effort: Pulmonary effort is normal. Breath sounds: Normal breath sounds. Abdominal: General: Abdomen is flat. Bowel sounds are normal. Palpations: Abdomen is soft. Musculoskeletal: Cervical back: Normal range of motion and neck supple. Skin: General: Skin is warm and dry. Capillary Refill: Capillary refill takes less than 2 seconds. Neurological: General: No focal deficit present. Mental Status: He is alert and oriented to person, place, and time. Mental status is at baseline. Psychiatric: Mood and Affect: Mood normal. Behavior: Behavior normal. Assessment/Plan Problem List Items Addressed This Visit ICD-10-CM Depression F32.A Relevant Medications sertraline (Zoloft) 50 mg tablet GERD (gastroesophageal reflux disease) K21.9 Relevant Medications omeprazole (PriLOSEC) [address] capsule Gout M10.9 Relevant Medications allopurinol (Zyloprim) 100 mg tablet Hypertension I10 Blood pressure under good control, check electrolyte and renal functions today. Relevant Medications lisinopril 20 mg tablet Other Relevant Orders Comprehensive Metabolic Panel ECG 12 Lead Other male erectile dysfunction N52.8 Relevant Medications sildenafil (Viagra) 100 mg tablet Other Visit Diagnoses Codes Preop examination - Primary Z01.818 EKG stable, able to exercise 4 METS, check labs, should be medically cleared for planned orthopedic surgery Relevant Orders CBC and Auto Differential Comprehensive Metabolic Panel ECG 12 Lead Medically acceptable risk for planned cervical spine surgery. documented in this encounter [facility] Work Phone: 10-22-2023 History of Present illness Narrative 58 y.o. male presents for evaluation of hives to entire body that began last evening. Does not recall any new household or environmental exposures. No new medications. No new foods. Denies difficuty breathing, swallowing, sore throat, chest pains, n/v/d, SOB, fever or any other associated symptoms. No otc meds for symptoms. No other complaints. Vitals: 10/22/23 0936 BP: 129/79 Pulse: (!) 120 Resp: 14 Temp: 36.3 C (97.4 F) SpO2: 97% No Known Allergies Medication Documentation Review Audit Reviewed by Traci Pruitt MA (Helicopter Specialist) on 10/22/23 at 0934 Medication Order Taking? Sig Documenting Provider Last Dose Status allopurinol (Zyloprim) 100 mg tablet [id number] Take 1 tablet (100 mg) by mouth once daily. Tunde Avalos MD Active lisinopril 20 mg tablet [id number] Yes Take 1 tablet (20 mg) by mouth once daily. Tunde Avalos MD Taking Active metroNIDAZOLE (MetroCream) 0.75 % cream [id number] Yes Apply topically 2 times a day. Tunde Avalos MD Taking Active omeprazole (PriLOSEC) [address] capsule [id number] Yes Take 1 capsule (20 mg) by mouth once daily. Tunde Avalos MD Taking Active sertraline (Zoloft) 50 mg tablet [id number] Yes Take 1 tablet (50 mg) by mouth once daily. Tunde Avalos MD Taking Active sildenafil (Viagra) 100 mg tablet [id number] Yes Take 1 tablet (100 mg) by mouth if needed for erectile dysfunction. (1 HOUR BEFORE NEEDED) Tunde Avalos MD Taking Active History reviewed. No pertinent past medical history. Past Surgical History: Procedure Laterality Date OTHER SURGICAL HISTORY 01/06/2020 Endoscopy OTHER SURGICAL HISTORY 01/06/2020 Colonoscopy OTHER SURGICAL HISTORY 10/05/2020 Cataract surgery ROS See HPI Physical Exam Vitals and nursing note reviewed. Constitutional: General: He is not in acute distress. Appearance: Normal appearance. He is not ill-appearing, toxic-appearing or diaphoretic. HENT: Mouth/Throat: Lips: [place]. No lesions. Mouth: Mucous membranes are moist. Tongue: No lesions. Tongue does not deviate from midline. Palate: No mass and lesions. Pharynx: Oropharynx is clear. Uvula midline. No pharyngeal swelling, oropharyngeal exudate, posterior oropharyngeal erythema or uvula swelling. Tonsils: No tonsillar exudate or tonsillar abscesses. 0 on the right. 0 on the left. Cardiovascular: Rate and Rhythm: Regular rhythm. Tachycardia present. Pulmonary: Effort: Pulmonary effort is normal. No respiratory distress. Breath sounds: Normal breath sounds. No stridor. No wheezing, rhonchi or rales. Skin: General: Skin is warm and dry. Findings: Rash (hives scattered over face, bilateral upper and lower extremities, torso mainly along mid axillary lines, and groin) present. Neurological: General: No focal deficit present. Mental Status: He is alert and oriented to person, place, and time. Psychiatric: Mood and Affect: Mood normal. Behavior: Behavior normal. Assessment/Plan/MDM Fritz was seen today for rash. Diagnoses and all orders for this visit: Hives (Primary) - methylPREDNISolone sod succinate (SOLU-Medrol) injection 125 mg - diphenhydrAMINE (BENADryl) injection 50 mg - methylPREDNISolone (Medrol Dospak) 4 mg tablets; Take as directed on package. Encouraged patient to continue Benadryl OTC every 6 hours. To start medrol dose mike tomorrow. Advised if symptoms worsen to go to emergency department. Patient's clinical presentation is otherwise unremarkable at this time. Patient is discharged with instructions to follow-up with primary care or seek emergency medical attention for worsening symptoms or any new concerns. 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 Given his weakness and pain, I like him to consider a trial of physical therapy, if this does not help improve his symptoms we may need to consider an MRI scan of his neck. documented in this encounter [facility] Work Phone: 08-01-2023 Progress note Formatting of t his note might be different from the original. Please let the patient know that his x-rays only show a bit of mild arthritis in his left shoulder otherwise unremarkable. Given his weakness and pain, I like him to consider a trial of physical therapy, if this does not help improve his symptoms we may need to consider an MRI scan of his neck. [facility] Work Phone: 08-01-2023 History of Present illness Narrative Subjective Patient ID: Fritz Levy is a 58 y.o. male who presents for B/L shoulder Pain UPPER Extremitiy weakness. HPI Was given meloxicam in February for chronic shoulder pain, did not help Pain shoulders to neck, radiates to mid upper arm, some trouble lifting over head, seems to move from side to side Seeing chiropractor (Alexis), seems to help Pain for years, comes and goes Review of Systems Constitutional: Negative for activity change, appetite change and fatigue. Respiratory: Negative for cough, chest tightness and shortness of breath. Cardiovascular: Negative for chest pain, palpitations and leg swelling. Gastrointestinal: Negative for abdominal pain, constipation, diarrhea, nausea and vomiting. Musculoskeletal: Positive for arthralgias. Neurological: Negative for numbness and headaches. Objective BP 120/90 Pulse 88 Ht 1.829 m (6') Wt 108 kg (238 lb 6.4 oz) SpO2 98% BMI 32.33 kg/m Physical Exam Vitals and nursing note reviewed. Constitutional: Appearance: Normal appearance. HENT: Head: Normocephalic and atraumatic. Right Ear: Tympanic membrane, ear canal and external ear normal. Left Ear: Tympanic membrane, ear canal and external ear normal. Nose: Nose normal. Mouth/Throat: Mouth: Mucous membranes are moist. Pharynx: Oropharynx is clear. Cardiovascular: Rate and Rhythm: Normal rate and regular rhythm. Pulses: Normal pulses. Heart sounds: Normal heart sounds. Pulmonary: Effort: Pulmonary effort is normal. Breath sounds: Normal breath sounds. Musculoskeletal: Cervical back: Normal range of motion and neck supple. Comments: Neck with normal range of motion, negative Spurling sign, normal upper extremity sensation, plus 4 out of 5 strength at right arm shoulder abduction and arm flexion. Patient also with very brisk reflexes +3 biceps and brachioradialis bilateral arms. Normal strength left upper extremity. Patient with no impingement signs on evaluation, normal shoulder range of motion. Neurological: Mental Status: He is alert. Psychiatric: Mood and Affect: Mood normal. Behavior: Behavior normal. Assessment/Plan Problem List Items Addressed This Visit None Visit Diagnoses Codes Neck pain - Primary M54.2 Check x-rays, consider PT evaluation, follow-up with chiropractor, may need MRI scan of neck given weakness in right arm and brisk reflexes. Relevant Orders XR cervical spine complete 4-5 views Chronic pain of both shoulders M25.511, G89.29, M25.512 Believe that this may be more of a neck issue, check x-rays, assess after that. Use meloxicam as needed for pain. Relevant Orders XR shoulder left 2+ views XR shoulder right 2+ views documented in this encounter [facility] Work Phone: 02-17-2023 Evaluation + Plan note Associated Problem(s): Hypertriglyceridemia Advised at length about diet. No change. [facility] Work Phone: 02-17-2023 Evaluation + Plan note Associated Problem(s): Gout No flares in some time, a uric acid level gradually dropping. [facility] Work Phone: 02-17-2023 Evaluation + Plan note Associated Problem(s): Depression Emotionally stable currently, no change. [facility] Work Phone: 02-17-2023 Evaluation + Plan note Associated Problem(s): GERD (gastroesophageal reflux disease) Currently stable with current medication. [facility] Work Phone: 02-17-2023 Miscellaneous Notes Associated Problem(s): Hypertriglyceridemia Advised at length about diet. No change. Associated Problem(s): Gout No flares in some time, a uric acid level gradually dropping. Associated Problem(s): Depression Emotionally stable currently, no change. Associated Problem(s): GERD (gastroesophageal reflux disease) Currently stable with current medication. Associated Problem(s): Hypertension Blood pressure under good control, renal function stable, no change. Associated Problem(s): Essential tremor Currently stable, not using metoprolol. documented in this encounter [facility] Work Phone: 02-17-2023 Evaluation + Plan note Associated Problem(s): Hypertension Blood pressure under good control, renal function stable, no change. [facility] Work Phone: 02-17-2023 Evaluation + Plan note Associated Problem(s): Essential tremor Currently stable, not using metoprolol. [facility] Work Phone: 02-17-2023 History of Present illness Narrative Subjective Patient ID: Fritz Levy is a 58 y.o. male who presents for 6 MO Labs. HPI No headache, chest pain, shortness of breath, dizziness, lightheadedness, or edema Taking PPI daily without breakthrough symptoms. Reviewed dietary, caffeine, tobacco, alcohol, and NSAID use. No dyspepsia, dysphagia, reflux, melena, or abdominal pain. Some tremor with playing music Emotionally doing OK Shoulder pain, george with abduction over head for a long time, has not tried anything, no weakness Some constipation issues at times Review of Systems Constitutional: Negative for activity change, appetite change, fatigue and unexpected weight change. HENT: Negative for ear pain, nosebleeds, rhinorrhea, sneezing and trouble swallowing. Respiratory: Negative for cough, shortness of breath and wheezing. Cardiovascular: Negative for chest pain, palpitations and leg swelling. Gastrointestinal: Positive for constipation. Negative for abdominal distention, abdominal pain, diarrhea, nausea and vomiting. Genitourinary: Negative for difficulty urinating. Musculoskeletal: Positive for arthralgias. Skin: Negative for rash. Neurological: Negative for dizziness, light-headedness, numbness and headaches. Hematological: Negative for adenopathy. Psychiatric/Behavioral: Negative for behavioral problems. All other systems reviewed and are negative. Objective BP 110/90 Pulse 81 Ht 1.829 m (6') Wt 105 kg (231 lb) SpO2 98% BMI 31.33 kg/m Physical Exam Vitals and nursing note reviewed. Constitutional: General: He is not in acute distress. Appearance: Normal appearance. He is not toxic-appearing. HENT: Head: Normocephalic and atraumatic. Right Ear: Tympanic membrane, ear canal and external ear normal. Left Ear: Tympanic membrane, ear canal and external ear normal. Nose: Nose normal. Mouth/Throat: Mouth: Mucous membranes are moist. Pharynx: Oropharynx is clear. Eyes: Extraocular Movements: Extraocular movements intact. Conjunctiva/sclera: Conjunctivae normal. Pupils: Pupils are equal, round, and reactive to light. Cardiovascular: Rate and Rhythm: Normal rate and regular rhythm. Pulmonary: Effort: Pulmonary effort is normal. Breath sounds: Normal breath sounds. Abdominal: General: Abdomen is flat. Bowel sounds are normal. Palpations: Abdomen is soft. Musculoskeletal: Cervical back: Normal range of motion and neck supple. Comments: Normal range of motion of the right shoulder, no impingement signs on examination, nontender to palpation. Skin: General: Skin is warm and dry. Capillary Refill: Capillary refill takes less than 2 seconds. Neurological: General: No focal deficit present. Mental Status: He is alert and oriented to person, place, and time. Mental status is at baseline. Psychiatric: Mood and Affect: Mood normal. Behavior: Behavior normal. Assessment/Plan Problem List Items Addressed This Visit Circulatory Hypertension - Primary Blood pressure under good control, renal function stable, no change. Relevant Orders Follow Up In Primary Care Comprehensive Metabolic Panel Digestive GERD (gastroesophageal reflux disease) Currently stable with current medication. Relevant Medications omeprazole (PriLOSEC) [address] capsule Other Relevant Orders Follow Up In Primary Care Genitourinary Male erectile disorder of organic origin Relevant Medications sildenafil (Viagra) 100 mg tablet Other Relevant Orders Follow Up In Primary Care Other Depression Emotionally stable currently, no change. Relevant Medications sertraline (Zoloft) 50 mg tablet Other Relevant Orders Follow Up In Primary Care Gout No flares in some time, a uric acid level gradually dropping. Relevant Medications allopurinol (Zyloprim) 100 mg tablet Other Relevant Orders Follow Up In Primary Care Hypertriglyceridemia Advised at length about diet. No change. Relevant Orders Follow Up In Primary Care Cholesterol, LDL Direct Other Visit Diagnoses Prostate cancer screening Relevant Orders Prostate Specific Antigen, Screen Chronic pain of both shoulders Was given meloxicam to use as needed, call if symptoms worsen. Relevant Medications meloxicam (Mobic) 15 mg tablet documented in this encounter [facility] Work Phone: 02-17-2023 Instructions Tunde Avalos MD - 02/17/2023 8:00 AM EDT Watch sugars in diet, use the meloxicam as needed, increase fluids and fiber in diet documented in this encounter [facility] Work Phone: 06-15-2022 History of Present illness Narrative No headache, chest pain, shortness of breath, dizziness, lightheadedness, or edemaTaking PPI daily without breakthrough symptoms. Reviewed dietary, caffeine, tobacco, alcohol, and NSAID use. No dyspepsia, dysphagia, reflux, melena, or abdominal pain.Was in ER in June for pneumoniaHBP less than 140/90no gout flares in a whileRosacea stableemotionally doing OKsome tremor in right hand, cut sertraline to 1/2 a day [facility] Work Phone: 01-28-2021 Emergency department Note ED PROVIDER NOTE [facility] NAME: Kedar Levy AGE: 55 y.o. : 1965 VISIT DATE: 01/28/2021 CSN: [id number] PCP: Tunde Avalos MD Chief Complaint Patient presents with Toe Pain HPI HPI: 55-year-old male, with history of single episode of gout in the right great toe, history of hypertension, depression, now presenting for evaluation of right great toe pain, swelling, redness. Patient reports is been going on for 2 weeks. He points to the IP joint. He and report that when he is up on his feet for prolonged periods of time the toe becomes more swollen. 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 No recent febrile illness. No spreading/radiating pain or redness or swelling up the foot or leg. No other joint problems today or recently. They report that patient kicked his truck tire about a month ago, the nail became black and came off and has since started to regrow; they are unsure whether the current symptoms are related to that since it happened a couple weeks before current symptoms started. Severity: Severe when he is up and about on it, but minimal discomfort when the foot is not bearing weight; patient declines any pain medication Location: as above* Radiating to: only as above; otherwise none* Exacerbated by: only as above; otherwise none* Relieved by: only as above; otherwise none* Associated with: only as above; otherwise none* Historian(s) deny any other concerns. ROS negative except as above. I have reviewed and agree with the available nursing notes except as otherwise reported. I have reviewed available medical records. REVIEW OF SYSTEMS: Const: No fever Eyes: No vision change ENT: CV: No CP No syncope Resp: No cough No SOB GI: No Abdo pain No nausea No vomiting No diarrhea : No sx MSK: Negative except as noted in HPI Skin: No rash Neuro: No IZQUIERDO Hem: No bleeding/clotting problems Psych: Nl behavior except as otherwise noted PHYSICAL EXAM: Patient Vitals for the past 24 hrs: BP Temp Pulse Resp SpO2 Height Weight 01/28/21 0859 (!) 142/89 (!) 96.3 F (35.7 C) 75 18 100 % 6' 95.3 kg (210 lb) VS Reviewed. Constitutional: Non-toxic Head: Normocephalic Atraumatic Eyes: PERRL EOMi ENT: Masked Neck: Nl ROM trachea midline Cardiovascular: Nl color Respiratory: No resp distress Gastrointestinal: Non-distended Genitourinary: Back Upper Extremities: Nl inspection Lower Extremities: Normal inspection other than the right great toe, where there is mildly erythematous swelling at the IP joint. There is tenderness at the IP joint dorsally. Not particularly hot. Reasonable range of motion. No definite deformity or instability. The nail plate is starting to grow in, but has an abnormal growth pattern; there are no acute findings to the nail or nailbed. No fluctuance or induration. Neurologic: Alert answers questions appropriately no focal deficits Psych: Appropriate Skin: Warm Dry Nl color No acute/emergency findings unless otherwise specified Past Medical History: Diagnosis Date Depression Hypertension History reviewed. No pertinent surgical history. History reviewed. No pertinent family history. Social History Socioeconomic History Marital status: Spouse name: Not on file Number of children: Not on file Years of education: Not on file Highest education level: Not on file Occupational History Not on file Tobacco Use Smoking status: Never Smoker Smokeless tobacco: Never Used Substance and Sexual Activity Alcohol use: Yes Comment: occasional Drug use: Never Sexual activity: Not on file Other Topics Concern Not on file Social History Narrative Not on file Social Determinants of Health Financial Resource Strain: Difficulty of Paying Living Expenses: Food Insecurity: Worried About Running Out of Food in the Last Year: Ran Out of Food in the Last Year: Transportation Needs: Lack of Transportation (Medical): Lack of Transportation (Non-Medical): Physical Activity: Days of Exercise per Week: Minutes of Exercise per Session: Stress: Feeling of Stress : Social Connections: Frequency of Communication with Friends and Family: Frequency of Social Gatherings with Friends and Family: Attends Caodaism Services: Active Member of Clubs or Organizations: Attends Club or Organization Meetings: Marital Status: Previous Medications Medication Sig LISINOPRIL-HYDROCHLOROTHIAZIDE ORAL Take by mouth . loratadine (CLARITIN ORAL) Take by mouth . multivitamin capsule Take 1 capsule by mouth daily . OMEPRAZOLE ORAL Take by mouth . sertraline (ZOLOFT) 50 MG tablet Take 50 mg by mouth daily . Not on File Review of Systems Patient Vitals for the past 24 hrs: BP Temp Pulse Resp SpO2 Height Weight 01/28/21 0859 (!) 142/89 (!) 96.3 F (35.7 C) 75 18 100 % 6' 95.3 kg (210 lb) Physical Exam Laboratory & Radiographic Imaging (if done): No results found for this visit on 01/28/21. XR Toe(s) Right 2+ Views Final Result There is no acute process. No fracture is seen. Workstation ID: [id number] Procedures [facility] Medical Decision Making DDx (including but not limited to): Gout vs. pseudogout Chronic fracture secondary to kicking tire Other arthritic condition No indication of: Septic arthritis Osteomyelitis Dislocation Diabetic wound Necrotizing fasciitis Tenosynovitis Abscess DVT ED Course as of January 28 1018 Sun January 28, 2021 1017 NAD per radiology report and my read XR Toe(s) Right 2+ Views [GN] ED Course User Index [GN] Ricardo Monterroso MD Discharge Considered appropriately wide DDx. At this time, acutely dangerous emergency conditions found to be unlikely based on history, exam, vitals and any testing, except as otherwise specified, and patient is appropriate for outpatient management including indomethacin and follow-up with his PCP this week; patient is able to ambulate with normal gait, does not need crutches. Pt will return to the ED if condition is worsening in any way, or if new sx arise. They understand, are appreciative and comfortable with outpatient plan including follow-up and return ED recommendations as discussed. Pt appears nontoxic, well-hydrated and comfortable. . Clinical Impression: 1. Acute gout involving toe of right foot, unspecified cause ED Disposition ED Disposition Condition Comment Discharge Stable Kedar Levy discharged to home/self care in stable condition. Follow-up Information 1. Tunde Avalos MD. Specialty: Family Medicine Why: For recheck, to make sure that you are improving [address] [facility] [address] Contact information for after-discharge care Follow-up information has not been specified. New Prescriptions indomethacin (INDOCIN SR) 75 mg CR capsule Take 1 (one) capsule (75 mg total) by mouth 2 (two) times a day with meals . Ricardo Monterroso MD 01/28/21 1024 Pt presents with c/o right great toe pain. Knuckle of toe is reddened. When asked if he's had gout before, pt states yeah, they did tell me that once. pt also states that he stubbed his right great toe about a month ago and that the nail bed turned black and blue and then fell off. current pain has been approximately 2 weeks. 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 Prostate cancer screening Special screening for malignant neoplasm of prostate Chronic pain of both shoulders documented in this encounter [facility] Work Phone: Evaluation note* Diagnosis Neck pain- Primary Cervicalgia Chronic pain of both shoulders documented in this encounter [facility] Work Phone: Evaluation note* Diagnosis Neck pain Cervicalgia documented in this encounter [facility] Work Phone: Evaluation note* Diagnosis Chronic pain of both shoulders documented in this encounter [facility] Work Phone: Evaluation note* Diagnosis Neck pain Cervicalgia documented in this encounter [facility] Work Phone: Evaluation note* Diagnosis Chronic pain of both shoulders documented in this encounter [facility] Work Phone: Evaluation note* Diagnosis Hives- Primary Unspecified urticaria documented in this encounter [facility] Work Phone: Evaluation note* Diagnosis Segmental and somatic dysfunction of cervical region Spondylosis without myelopathy or radiculopathy, cervical region Cervicalgia documented in this encounter [facility] Work Phone: Evaluation note* Diagnosis Preop examination- Primary Unspecified pre-operative examination Gout, unspecified cause, unspecified chronicity, unspecified site Primary hypertension Unspecified essential hypertension Gastroesophageal reflux disease without esophagitis Esophageal reflux Major depressive disorder with single episode, in partial remission ([facility]) 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 Return to the nearest emergency department at any time if there is: any new, returning or worsening symptoms Increased/spreading swelling/redness new or changing rash fever > 100.4 (or feeling like there is a high fever if you don't have a thermometer) uncontrollable shaking chills difficulty following up as recommended or any other concerns about your condition or treatment. best regards, Ricardo Monterroso MD * Attachments The following attachments cannot be sent through Care Everywhere. * Gout (Azeri) [facility] (narrative)* Consultation (Routine) - Authorized Specialty Diagnoses / Procedures Referred By Contac t Referred To Contact Primary Care Diagnoses Primary hypertension Gastroesophageal reflux disease without esophagitis Hypertriglyceridemia Gout, unspecified cause, unspecified chronicity, unspecified site Major depressive disorder with single episode, in partial remission (CMS/HCC) Male erectile disorder of organic origin Procedures Follow Up In Primary Care Tunde Avalos MD [address] [place] [address] Referral ID Status Reason Start Date Expiration Date V isits Requested Visits Authorized [id number] Authorized 02/17/2023 08/16/2023 1 1 [facility] Work Phone: Summary Purpose Family History No Family History Records FoundUnknown Family Member Name Dates Details Type 1 diabetes mellitus wit h hyperglycemia: Father, Brother Status:Active Family history of malignant neoplasm of colon: Father(V16.0, Z80.0) Status:Active Family history of hypertensi on: Father, Brother(V17.49, Z82.49) Status:Active Unknown Family Member Name Dates Details Type 1 diabetes mellitus wit h hyperglycemia: Father, Brother Status:Active Family history of malignant neoplasm of colon: Father(V16.0, Z80.0) Status:Active Family history of hypertensi on: Father, Brother(V17.49, Z82.49) Status:Active Unknown Family Member Name Dates Details Type 1 diabetes mellitus wit h hyperglycemia: Father, Brother Status:Active Family history of malignant neoplasm of colon: Father(V16.0, Z80.0) Status:Active Family history of hypertensi on: Father, Brother(V17.49, Z82.49) Status:Active Unknown Family Member Name Dates Details Family history of hypertensi on: Father, Brother(V17.49, Z82.49) Status:Active Family history of malignant neoplasm of colon: Father(V16.0, Z80.0) Status:Active Type 1 diabetes mellitus wit h hyperglycemia: Father, Brother Status:Active Unknown Family Member Name Dates Details Family history of hypertensi on: Father, Brother(V17.49, Z82.49) Status:Active Family history of malignant neoplasm of colon: Father(V16.0, Z80.0) Status:Active Type 1 diabetes mellitus wit h hyperglycemia: Father, Brother Status:Active Unknown Family Member Name Dates Details Family history of hypertensi on: Father, Brother(V17.49, Z82.49) Status:Active Family history of malignant neoplasm of colon: Father(V16.0, Z80.0) Status:Active Type 1 diabetes mellitus wit h hyperglycemia: Father, Brother Status:Active Unknown Family Member Name Dates Details Type 1 diabetes mellitus wit h hyperglycemia: Father, Brother Status:Active Family history of malignant neoplasm of colon: Father(V16.0, Z80.0) Status:Active Family history of hypertensi on: Father, Brother(V17.49, Z82.49) Status:Active Unknown Family Member Name Dates Details Type 1 diabetes mellitus wit h hyperglycemia: Father, Brother Status:Active Family history of malignant neoplasm of colon: Father(V16.0, Z80.0) Status:Active Family history of hypertensi on: Father, Brother(V17.49, Z82.49) Status:Active Unknown Family Member Name Dates Details Family history of hypertensi on: Father, Brother(V17.49, Z82.49) Status:Active Family history of malignant neoplasm of colon: Father(V16.0, Z80.0) Status:Active Type 1 diabetes mellitus wit h hyperglycemia: Father, Brother Status:Active Advance Directives No Advanced Directives Records FoundDocuments on File Type Date 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 and Livin g Will 01/28/2021 9:13 AM Chief Complaint HTN GOUT GERD [facility] Reason for Referral Specialty Diagnoses / Procedures Referred By Phill cavazos Referred To Contact Radiology Diagnoses Chronic pain of both shoulders Procedures XR shoulder right 2+ views Tunde Avalos MD [address] [place] [id number] Referral ID Status Reason Start Date Expiration Date Visits Requested Visits Authorized [id number] Authorized Perform Procedure 3 07/31/2024 1 1 Specialty Diagnoses / Procedures Referred By Phill cavazos Referred To Contact Radiology Diagnoses Chronic pain of both shoulders Procedures XR shoulder left 2+ views Tunde Avalos MD [address] [place] [address] Referral ID Status Reason Start Date Expiration Date Visits Requested Visits Authorized [id number] Authorized Perform Procedure 3 07/31/2024 1 1 Specialty Diagnoses / Procedures Referred By Contac t Referred To Contact Radiology Diagnoses Neck pain Procedures XR cervical spine complete 4-5 views Tunde Avalos MD [address] [place] [address] Referral ID Status Reason Start Date Expiration Date Visits Requested Visits Authorized [id number] Authorized Perform Procedure 3 07/31/2024 1 1 Specialty Diagnoses / Procedures Referred By Contac t Referred To Contact Radiology Diagnoses Segmental and somatic dysfunction of cervical region Spondylosis without myelopathy or radiculopathy, cervical region Cervicalgia Procedures MR cervical spine [place] [address] [place] [address] Referral ID Status Reason Start Date Expiration Date Visits Requested Visits Authorized [id number] Authorized Perform Procedure 10/28/2023 10/27/2024 1 1 Specialty Diagnoses / Procedures Referred By Contac t Referred To Contact Diagnoses Primary hypertension Preop examination Procedures ECG 12 Lead Tunde Avalos MD [address] [place] [address] Referral ID Status Reason Start Date Expiration Date V isits Requested Visits Authorized [id number] Authorized 11/13/2023 11/12/2024 1 1 Additional Source Comments (unrecognized sect ion and content) No Status Records FoundNo Status Records FoundNo Status Records FoundNo Status Records FoundNo Status Records FoundNo Status Records FoundNo Status Records FoundNo Status Records FoundNo Status Records Found INFORMATION SOURCE (unrecogn ized section and content) DATE CREATED AUTHOR AUTHOR'S ORGANIZ ATION 02/09/2021 [facility] DATE CREATED AUTHOR AUTHOR'S ORGANIZ ATION 10/20/2021 [facility] DATE CREATED AUTHOR AUTHOR'S ORGANIZ ATION 08/17/2022 [facility] DATE CREATED AUTHOR AUTHOR'S ORGANIZ ATION 08/17/2022 [facility] DATE CREATED AUTHOR AUTHOR'S ORGANIZ ATION 12/20/2022 [facility] DATE CREATED AUTHOR AUTHOR'S ORGANIZ ATION 11/15/2023 [facility] DATE CREATED AUTHOR AUTHOR'S ORGANIZ ATION 11/15/2023 [facility] DATE CREATED AUTHOR AUTHOR'S ORGANIZ ATION 11/17/2023 [facility] Reason for Visit (unrecogniz ed section and content) Reason Comments 6 [facility] Labs Reason Comments B/L shoulder Pain UPPER Extremitiy weakn ess Specialty Diagnoses / Procedures Referred By Contac t Referred To Contact Radiology Diagnoses Neck pain Procedures XR cervical spine complete 4-5 views Tunde Avalos MD [address] [place] [address] Referral ID Status Reason Start Date Expiration Date Visits Requested Visits Authorized [id number] Authorized Perform Procedure 3 07/31/2024 1 1 Specialty Diagnoses / Procedures Referred By Contac t Referred To Contact Radiology Diagnoses Chronic pain of both shoulders Procedures XR shoulder right 2+ views Tunde Avalos MD [address] [place] [address] Referral ID Status Reason Start Date Expiration Date Visits Requested Visits Authorized [id number] Authorized Perform Procedure 3 07/31/2024 1 1 Specialty Diagnoses / Procedures Referred By Contac t Referred To Contact Radiology Diagnoses Chronic pain of both shoulders Procedures XR shoulder left 2+ views Tunde Avalos MD [address] [place] [address] Referral ID Status Reason Start Date Expiration Date Visits Requested Visits Authorized [id number] Authorized Perform Procedure 3 07/31/2024 1 1 Reason Comments Rash RASH ON BOTH SIDES O F FACE, SIDES, GROIN, WRIST X 1 DAY Specialty Diagnoses / Procedures Referred By Contac t Referred To Contact Diagnoses Segmental and somatic dysfunction of cervical region Spondylosis without myelopathy or radiculopathy, cervical region Cervicalgia Procedures CHG MRI SPINAL CANAL CERVICAL W/O CONTRAST MATRL [facility] [address] [place] [address] Referral ID Status Reason Start Date Expiration Date Visits Re quested Visits Authorized [id number] 1 1 Reason Comments Pre-op Exam <item><item> Privacy Markings (unrecogniz ed section and content) Section Author: Danii Centeno PROHIBITION ON REDISCLOSURE OF CONFIDENTIAL INFORMATION This notice accompanies a disclosure of information concerning a client made to you with the consent of such client. Section Author: Danii Centeno PROHIBITION ON REDISCLOSURE OF CONFIDENTIAL INFORMATION This notice accompanies a disclosure of information concerning a client made to you with the consent of such client. Care Teams (unrecognized sec tion and content) Primer Charger Relationship Specialty Start Date End Date Tunde Avalos MD [address] [place] [address] PCP - MMO ACO PCP 01/13/22 Tunde Avalos MD [address] [place] [address] PCP - General Family Medicine 08/01/23 Primer Charger Relationship Specialty Start Date End Date Tunde Avalos MD [address] [place] [address] PCP - MMO ACO PCP 01/13/22 Tunde Avalos MD [address] [place] [address] PCP - General Family Medicine 08/01/23 Primer Charger Relationship Specialty Start Date End Date Tnude Avalos MD [address] [place] [address] PCP - MMO ACO PCP 01/13/22 Tunde Avalos MD [address] [place] [address] PCP - General Family Medicine 08/01/23 Primer Charger Relationship Specialty Start Date End Date Tunde Avalos MD [address] [place] [address] PCP - MMO ACO PCP 01/13/22 Tunde Avalos MD [address] [place] [address] PCP - General Family Medicine 08/01/23 Primer Charger Relationship Specialty Start Date End Date Tunde Avalos MD [address] [place] [address] PCP - MMO ACO PCP 01/13/22 Tunde Avalos MD [address] [place] [address] PCP - General Family Medicine 08/01/23 Primer Charger Relationship Specialty Start Date End Date Tunde Avalos MD [address] [place] [address] PCP - MMO ACO PCP 01/13/22 Tunde Avalos MD [address] [place] [address] PCP - General Family Medicine 08/01/23 Primer Charger Relationship Specialty Start Date End Date Tunde Avalos MD [address] [place] [place] [address] PCP - MMO ACO PCP 01/13/22 Tunde Avalos MD [address] [place] [address] PCP - General Family Medicine 08/01/23 FOR RECORDS PERTAINING TO PATIENTS WHO ARE OR HAVE BEEN ENROLLED IN A CHEMICAL DEPENDENCY/SUBSTANCEABUSE PROGRAM, SOME INFORMATION MAY BE OMITTED. This clinical summary was aggregated from multiple sources. Caution should be exercised in using it in the provision of clinical care. This summary normalizes information from multiple sources, and as a consequence, information in this document may materially change the coding, format and clinical context of patient data. In addition, data may be omitted in some cases. CLINICAL DECISIONS SHOULD BE BASED ON THE PRIMARY CLINICAL RECORDS. [facility] [employer] [facility]. provides no warranty or guarantee of the accuracy or completeness of information in this document.
--- NOTE | 2023-11-24 22:17 | PN.HOSP_ITS ---
Reason for Visit Reason for Visit: Diagnoses Encounter for other preprocedural examination (11/24/23) Subjective Subjective Hospitalist service was consulted at 11:45 AM for medical management after cervical disc surgery. He is doing well overall and denies new complaints. Additionally, he reports his RUE numbness and tingling has resolved since the surgery and he is very relieved overall. Objective Data Objective Data Vital Signs: Vital Signs Temp Pulse Resp BP Pulse Ox O2 Del Method O2 Flow Rate 97.8 F 84 16 138/67 H 97 Room Air 4 11/24/23 21:47 11/24/23 21:47 11/24/23 21:47 11/24/23 21:47 11/24/23 21:47 11/24/23 21:47 11/24/23 13:25 Oxygen Flow Rate (L/min) 4 Oxygen Delivery Method Room Air Weight: 223 lb 15.834 oz Body Mass Index (BMI) 30.4 Intake & Output: Intake and Output for Last 24 Hours 11/22/23 11/23/23 11/24/23 22:59 23:59 23:59 Intake Total 1507.17 / 1507.17 Balance 1507.17 / 1507.17 Lab / Micro Data Attestation: I reviewed the patient's lab results. 11/18/23 15:07 Labs: Laboratory Results - last 24 hr 11/24/23 05:46: POC Glucose 124 H Micro: Microbiology 11/18/23 15:07 Swab (Method) Nasal Screen MRSA/MSSA - Final Radiography Diagnostic Testing: Radiology Impression Cervical Spine X-Ray 11/24/23 09:24 IMPRESSION: Intraoperative imaging provided for anterior C5-C6 disc arthroplasty. Electronically Signed: Kvng Casper MD at 14:26 EDT , Physical Exam Const alert, oriented x3, no apparent distress and average body habitus General Appearance: cooperative Orientation / Consciousness: awake, oriented to person, oriented to place and oriented to time Nutritional Appearance: obese HEENT normocephalic, head/scalp atraumatic and hearing grossly normal bilaterally HEENT Narrative: Patient has a hard cervical collar in place with a large (golf ball sized) hematoma over his left lower anterior neck. Head and Scalp: normal to inspection, normocephalic and atraumatic Face and Sinus: normal facial exam Mouth: oral and palatal mucosa normal, lips normal, tongue normal and salivary gland normal Eyes PERRL, EOMs intact bilaterally, conjunctivae normal and no scleral icterus General Eye: normal appearance of both eyes Neck Neck Narrative: Patient is wearing a hard cervical collar. General: normal visual inspection, trachea midline and anterior neck swelling Chest inspection of chest normal and palpation of chest normal Resp normal respiratory effort, normal air movement, no retractions and no use of accessory muscles Cardio regular rate and regular rhythm GI normal to inspection, nondistended, normoactive bowel sounds, soft to palpation, non-tender and non-distended Extremity normal to inspection, full ROM, normal capillary refill, no joint enlargement and no clubbing, cyanosis or edema Skin no rashes or lesions noted Neuro oriented x3, CN's II-XII intact bilaterally, moves all extremities, no focal motor deficits and no sensory deficits noted Psych mental status grossly normal, thought process normal, cooperative, affect no rmal, speech normal and activity/motor behavior normal Assessment & Plan Assessment/Plan (1) HTN (hypertension): QUALIFIERS: Hypertension type: unspecified Qualified Code(s): I10 - Essential (primary) hypertension (2) Cervicalgia: (3) HNP (herniated nucleus pulposus) with myelopathy, cervical: PLAN: Plan 1. 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 Hernandez with patient POD #0 - Patient is doing well overall and denies new complaints. His RUE numbness and tingling he was experiencing prior to surgery has resolved. Continue Decadron and muscle relaxers. 2. Essential Hypertension - Continue current regimen plus give prn IV Hydralazine for systolic blood pressure > 160 mm Hg. 3. Depression - Resume Sertraline as previous. 4. GERD - Continue PPI. 5. DVT prophylaxis - As per orthopedic surgeon. Total time: Approximately 35 minutes. Charges/Coding Visit Charges Inpatient E&M: 81834 Subs Hosp L2
[2023-11-25] MEDS: dexAMETHasone 4 MG/ML Vial 2 MG IV ×2 (00:07→05:08)
[2023-11-25] MEDS: Cefazolin 1 GM/50 ML BAG IV (01:21)
[2023-11-25 01:47] VITALS: BP 148/95; PULSE 68; RESP 16; TEMP 36.6; O2SAT 96
[2023-11-25] MEDS: Acetaminophen 500 MG Tablet 1000 MG PO (05:08)
[2023-11-25 05:30] VITALS: BP 149/81; PULSE 97; RESP 16; TEMP 36.6; O2SAT 95
[2023-11-25 06:41] LABS: Hematocrit 40.4 % (40-54); Hemoglobin 13.3 g/dL (13.0-16.5); Mean Corp Hgb Conc 32.9 g/dL (32-36); Mean Corpuscular Hgb 28.9 pg (27.0-32.0); Mean Corpuscular Volume 87.6 fL (80-94); Mean Platelet Vol. 9.2 fl (6.2-12.0); Platelet Count 260 K/mm3 (150-450); RBC Distribution Width CV 13.6 % (11.6-14.6); RBC Distribution Width SD 43.2 fl (35.1-43.9); Red Blood Count 4.61 M/mm3 (4.6-6.2); White Blood Count 22.3 K/mm3 (4.4-11.0)
[2023-11-25 07:45] LABS: Anion Gap 6 (5-15); BUN 19 mg/dL (7-18); BUN/Creat Ratio 14.6 RATIO (10-20); Calcium,Total 9.3 mg/dL (8.5-10.1); Chloride 107 mmol/L (98-107); EST Glomerular Filtration Rate 60 mL/min (>60); Est Glom Filt Rate - Afr Amer 72 mL/min (>60); Estimated Creatinine Clearance 74.53 ml/min; Glucose 142 mg/dL (74-106); Potassium 4.6 mmol/L (3.5-5.1); Sodium Level 138 mmol/L (136-145)
[2023-11-25] MEDS: Lisinopril 20 MG Tablet PO (08:43)
[2023-11-25] MEDS: Pantoprazole Sodium 20 MG Tablet PO (08:43)
[2023-11-25] MEDS: Meloxicam 15 MG Tablet PO (08:43)
[2023-11-25] MEDS: Ensure Surgery 237 ML LIQUID PO (08:43)
[2023-11-25] MEDS: Allopurinol 100 MG Tablet PO (08:44)
[2023-11-25] MEDS: Sertraline 50 MG Tablet PO (08:44)
--- NOTE | 2023-11-25 09:12 | RAD_ITS ---
EXAM: XR CERVICAL SPINE, 2 OR 3 VIEWS CLINICAL INDICATION: s/p disc repl -- Please do upright AP lateral TECHNIQUE: Frontal and lateral views of the cervical spine. COMPARISON: XR Cervical Spine dated 11/11/2023 FINDINGS: VERTEBRAE: Loss of the normal cervical lordosis which may be due to muscle spasm or head positioning. DISC SPACES: Interval placement of disc implant at the C5-6 level. SOFT TISSUES: Normal. No prevertebral soft tissue widening. LUNG APICES: Clear. RAD/Cerv Spine 2 or 3 Views IMPRESSION: Satisfactory operative change. Electronically Signed: Stephen Toro MD at 12:51 EDT ,
[2023-11-25 09:25] VITALS: BP 136/86; PULSE 98; RESP 18; TEMP 36.6; O2SAT 95
--- NOTE | 2023-11-25 09:35 | PCM.PN.HOSP ---
Reason for Visit Reason for Visit: Diagnoses Essential (primary) hypertension (11/24/23) Cervical disc disorder with myelopathy, unspecified cervical region (11/24/23) Cervicalgia (11/24/23) Encounter for other preprocedural examination (11/24/23) Objective Data Objective Data Vital Signs: Vital Signs Temp Pulse Resp BP Pulse Ox O2 Del Method O2 Flow Rate 97.9 F 98 18 136/86 H 95 Room Air 4 11/25/23 09:25 11/25/23 09:25 11/25/23 09:25 11/25/23 09:25 11/25/23 09:25 11/25/23 09:25 11/24/23 13:25 Oxygen Flow Rate (L/min) 4 Oxygen Delivery Method Room Air Weight: 223 lb 15.834 oz Body Mass Index (BMI) 30.4 Intake & Output: Intake and Output for Last 24 Hours 11/23/23 11/24/23 11/25/23 23:59 23:59 23:59 Intake Total 1507.17 / 1507.17 658.33 / 658.33 Balance 1507.17 / 1507.17 658.33 / 658.33 Lab / Micro Data 11/25/23 05:21 11/25/23 05:21 Labs: Laboratory Results - last 24 hr 11/25/23 05:21: WBC 22.3 H, RBC 4.61, Hgb 13.3, Hct 40.4, MCV 87.6, MCH 28.9, MCHC 32.9, RDW Std Deviation 43.2, RDW Coeff of Dameon 13.6, Plt Count 260, MPV 9.2, Sodium 138, Potassium 4.6, Chloride 107, Carbon Dioxide 25.0, Anion Gap 6, BUN 19 H, Creatinine 1.30, Estim Creat Clear Calc 74.53, Est GFR (MDRD) Af Amer 72, Est GFR (MDRD) Non-Af 60, BUN/Creatinine Ratio 14.6, Glucose 142 H, Calcium 9.3 Micro: Microbiology 11/18/23 15:07 Swab (Method) Nasal Screen MRSA/MSSA - Final Radiography Diagnostic Testing: Radiology Impression Cervical Spine X-Ray 11/24/23 09:24 IMPRESSION: Intraoperative imaging provided for anterior C5-C6 disc arthroplasty. Electronically Signed: Kvng Casper MD at 14:26 EDT , Physical Exam Narrative Seen and examined. Patient had cervical spine surgery on 11/24/2023 through left lateral approach. Mild pain. Doing well. Patient spontaneously voided urine. Had bowel movement today. Physical exam General: Alert, Oriented x3, Cooperative HEENT: Atraumatic, PERRLA, EOMI, Normocephalic Oral: No Gingival or Mucosal Lesions/ Ulcerations Neck: Surgical dressing is dry over left lateral neck. Mild tenderness. Supple, No JVD, Negative Carotid Bruits Chest wall/Lungs: Air entry diminished in bilateral lung bases. No crepitation/rhonchi Cardiovascular: Regular rate, Regular Rhythm, Normal S1, Normal S2, No M/G/R Abdomen: Bowel Sounds Present, Soft, Non Tender, Non-Distended : No dysuria. No renal angle tenderness. No suprapubic tenderness. Extremities: No edema, Capillary Refill Less than 3 Seconds Skin: Diffuse facial capillary punctate bleeding/conjunctival bleeding during anesthesia/extubation. Musculoskeletal: No Tenderness to Palpation of Joints or Extremities Neurological: Cranial nerves II-XII grossly intact, DTR 2+/4. No acute focal neurological deficit. Psych/Mental Status: Normal Affect, Appropriate. Assessment & Plan Assessment/Plan (1) HTN (hypertension): QUALIFIERS: Hypertension type: unspecified Qualified Code(s): I10 - Essential (primary) hypertension (2) Cervicalgia: (3) HNP (herniated nucleus pulposus) with myelopathy, cervical: PLAN: Plan 1. 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 Hernandez: Patient had surgery on 11/24/2023.- Patient is doing well overall and denies new complaints. His RUE numbness and tingling he was experiencing prior to surgery has resolved. Continue Decadron and muscle relaxers. Patient voided spontaneously urine. Does not have Ross catheter. Had bowel movement today. Patient had mild capillary punctate spots/bleeding on face during intubation but no active. Lungs clear. Patient is medically stable for discharge. 2. Essential Hypertension -heart rate and blood pressure in normal range. 3. Depression - Resume Sertraline as previous. 4. GERD - Continue PPI. 5. DVT prophylaxis - As per orthopedic surgeon. Follow-up in orthopedic clinic. Charges/Coding Visit Charges Inpatient E&M: 74463 Subs Hosp L2
--- NOTE | 2023-11-25 11:30 | CASEMGMT ---
BASHIR GERBER Assessment: Face to Face with pt for initial transition planning/care coordination assessment. BASHIR GERBER introduced self and role at [facility], pt voices understanding and consents to assessment. Pt is A&O x4 and answers all questions appropriately at this time. Pt sitting up in chair with neck brace on with and dtr at bedside. Pt agreeable to assessment with family present. Care providers, pharmacy, and demographics verified/updated. Admitting Dx: cervical disc arthroplasty C5-6 PCP:Surinder Specialists:uzair Hernandez Pharmacy: [facility] Insurance: [facility] [place] Prescription Benefit: yes LNOK: Rochelle Yung, elsa Living Arrangements: Pt lives with in a single story home with 2 steps to enter. Pt reports he is I in ADL's and denies concerns at home. Pt stated when he walked today with therapy he felt his balance was improved from prior to surgery. Transportation: Pt drives self and denies concerns with transportation. Pt will transport pt until he can drive again. DME:Denies HHC/SNF: Denies hx of Pt states no concerns with going home at time of dc. Pt states no further concerns/needs. CM to follow. Advised pt to ask CM if any further question/concerns/needs arise, voices understanding. Pt Goal: Home Plan: Home Daquan CAMEJO CM
[2023-11-25 14:00] VITALS: BP 137/82; PULSE 95; RESP 18; TEMP 36.6; O2SAT 96
--- NOTE | 2023-11-25 15:43 | CHAPLAIN ---
Type of Pastoral Visit _x__ Initial Visit ___ Follow-up Visit ___ On-call Visit ___ General Patient Visit ___ Spiritual Assessment ___ Family Conference ___ Bereavement ___ Rapid Response ___ Code Blue ___ Other (describe below) Pastoral Care Referral From _x__ Patient ___ Family ___ Nurse ___ Physician ___ Gem Setter ___ Shuttle Operator ___ Other (describe below) Sacrament/Intervention _x__ Active listening ___ Anointing ___ Taoist ___ Bereavement ___ Communion ___ Dejah exploration ___ ___ Life review _x__ Prayer ___ Reconciliation ___ Sacrament of Sick ___ Supportive presence ___ Wedding ___ Other (describe below) Pastoral Comments patient was waiting for discharge after successful procedures; family members are in the room; pt presents with hopeful and positive attitude about his situation and future; pt welcomes a prayer of thanks and for future recovery
== END 2023-11-25 14:26 | disposition home or self-care (01) ==
LOC: SDC 17:01 → MS3 17:01
PROVIDERS: Anesthesiology; Admitting Provider Orthopaedic Surgery Orthopaedic Surgery of the Spine; PCP Family Medicine; Referring Provider Orthopaedic Surgery Orthopaedic Surgery of the Spine; Visit Provider Orthopaedic Surgery Orthopaedic Surgery of the Spine
PROC: (CPT 22856; principal; 2023-11-24 07:00)
DX: M50.122 Cervical disc disorder at C5-C6 level with radiculopathy (principal); F17.220 Nicotine dependence, chewing tobacco, uncomplicated; I10 Essential (primary) hypertension; K21.9 Gastro-esophageal reflux disease without esophagitis; Z79.899 Other long term (current) drug therapy; F32.A Depression, unspecified
CPT/HCPCS: 22856; 00600; 36415; 72040; 76000; 80048; 82962; 83735; 85025; 85027; 86703; 86706; 86708; 86803; 87077; 87081; 94668; 96361; 96365; 96366; 96375; 96376; 97161; 99221; C1713; J7120; G0378; J2405; J3475

== ENCOUNTER → 2025-06-25 | Outpatient (CLI) | payer OTHER, SELFPAY ==
--- NOTE | 2025-06-25 07:52 | MRI_ITS ---
PROCEDURE: SPINE CERVICAL (ROUTINE) 06/25/2025 REASON FOR EXAM: PAIN NOT IMPROVING TECHNIQUE: Procedure Code: MRISPC Modality: MR Procedure: SPINE CERVICAL (ROUTINE) Multiplanar and multisequence images were obtained without IV contrast administration. COMPARISON: MRI cervical spine 10/29/2023. FINDINGS: Vertebrae: Cervical vertebral body heights are preserved. Bone marrow signal is unremarkable. Alignment: Normal. No spondylolisthesis. Spinal Cord: Cervical spinal cord is of normal size and signal intensities. Structures at the foramen magnum are unremarkable. C2-3: Unremarkable. C3-4: Unremarkable. C4-5: A disc osteophyte complex measures 2 mm. No significant foraminal or canal stenosis. C5-6: Status post disc spacer placement with susceptibility artifact which limits the evaluation. No evident foraminal or canal stenosis. C6-7: Right paracentral disc osteophyte measures 7 mm. Severe right foramina stenosis. Severe right canal stenosis. No left foramina stenosis. C7-T1: Unremarkable MRI/Spine Cervical (Routine) IMPRESSION: Right paracentral disc osteophyte measures 7 mm. Severe right foramina stenosi s. Severe right canal stenosis. No left foramina stenosis. Reading Location: [id number]
== END | disposition home or self-care (01) ==
LOC: MRI 07:45
PROVIDERS: PCP Family Medicine; Referring Provider Orthopaedic Surgery Orthopaedic Surgery of the Spine; Visit Provider Orthopaedic Surgery Orthopaedic Surgery of the Spine
DX: Z98.890 Other specified postprocedural states (principal)
CPT/HCPCS: 72141